=== PATIENT | female | born 1990 | race Caucasian/White ===

== ENCOUNTER 2016-06-15 18:52 | Outpatient (CLI) | payer OTHER | END 2016-06-15 21:30 | disposition home or self-care (01) | LOC: GENOP 18:52 | DX: O36.8120 Decreased fetal movements, second trimester, not applicable or unspecified (principal); Z3A.20 20 weeks gestation of pregnancy | CPT/HCPCS: 81001; 82731; G0463 ==

== ENCOUNTER 2016-07-05 14:00 | Outpatient (CLI) | payer OTHER | END 2016-07-05 16:32 | disposition home or self-care (01) | LOC: GENOP 14:00 | DX: O99.343 Other mental disorders complicating pregnancy, third trimester (principal); F41.0 Panic disorder [episodic paroxysmal anxiety]; F32.9 Major depressive disorder, single episode, unspecified; G43.909 Migraine, unspecified, not intractable, without status migrainosus; R11.2 Nausea with vomiting, unspecified; Z3A.35 35 weeks gestation of pregnancy | CPT/HCPCS: G0463 ==

== ENCOUNTER 2016-07-29 06:25 | Inpatient (IN) | payer OTHER ==
[~2016-07-29] VITALS: Ht 170.2 cm; Wt 96.2 kg
[2016-07-30 03:17] LABS: HEMOGLOBIN 9.8 gm/dl (12.3-15.3)
[2016-07-31] MEDS ORDERED: IBUPROFEN600 MG PO (12:27)
== END 2016-07-31 13:40 | disposition home or self-care (01) | DRG 765 ==
LOC: OB 06:25
PROVIDERS: ADMIT Obstetrics & Gynecology
PROC: 3E0R3CZ (ICD-10-PCS; 2016-07-29)
PROC: 3E0234Z Introduction of Serum, Toxoid and Vaccine into Muscle, Percutaneous Approach (ICD-10-PCS; 2016-07-29)
PROC: 10D00Z1 Extraction of Products of Conception, Low, Open Approach (ICD-10-PCS; principal; 2016-07-29 08:45)
DX: O34.211 Maternal care for low transverse scar from previous cesarean delivery (principal); O98.32 Other infections with a predominantly sexual mode of transmission complicating childbirth; N85.8 Other specified noninflammatory disorders of uterus; O99.824 Streptococcus B carrier state complicating childbirth; Z3A.39 39 weeks gestation of pregnancy; Z37.0 Single live birth; A60.04 Herpesviral vulvovaginitis; O26.893 Other specified pregnancy related conditions, third trimester; Z67.21 Type B blood, Rh negative; O92.013 Retracted nipple associated with pregnancy, third trimester; O09.293 Supervision of pregnancy with other poor reproductive or obstetric history, third trimester; O99.344 Other mental disorders complicating childbirth; F32.9 Major depressive disorder, single episode, unspecified; F41.9 Anxiety disorder, unspecified; O99.214 Obesity complicating childbirth; E66.9 Obesity, unspecified; Z68.33 Body mass index [BMI] 33.0-33.9, adult; Z87.891 Personal history of nicotine dependence; Z87.440 Personal history of urinary (tract) infections; Z23 Encounter for immunization; Z79.899 Other long term (current) drug therapy; Z88.2 Allergy status to sulfonamides; Z83.3 Family history of diabetes mellitus; Z82.49 Family history of ischemic heart disease and other diseases of the circulatory system; Z80.0 Family history of malignant neoplasm of digestive organs; Z83.49 Family history of other endocrine, nutritional and metabolic diseases
CPT/HCPCS: 36415; 81001; 82800; 85014; 85018; 85025; 85461; 86900; 86901; 90715; C9113; J0690; J0694; J1885; J2274; J2300; J2405; J2590; J2765; J3010; J7050; J7120; Q0162

== ENCOUNTER 2020-07-04 20:47 | Emergency (ER) | payer OTHER ==
[~2020-07-04 20:47] MED LIST: IBUPROFEN600 MG PO
== END 2020-07-04 23:53 | disposition left against medical advice (07) ==
LOC: ER1 20:47
DX: Z53.21 Procedure and treatment not carried out due to patient leaving prior to being seen by health care provider (principal)

== ENCOUNTER 2020-08-24 12:53 | Emergency (ER) | payer OTHER ==
[2020-08-24 14:08] LABS: HEMOGLOBIN 14.1 gm/dl (12.3-15.3); RED BLOOD COUNT 4.55 M/UL (4.00-5.10); WHITE BLOOD COUNT 7.7 K/UL (4.5-11.0)
[2020-08-24 14:27] LABS: BUN/CREATININE RATIO 16 (0-10)
[2020-08-24] MEDS ORDERED: ANTIVERT 12.512.5 MG PO (15:50)
[2020-08-24] MEDS ORDERED: ZOFRAN ODT 4 MG4 MG PO (15:50)
== END 2020-08-24 16:00 | disposition home or self-care (01) ==
LOC: ER1 12:53
PROVIDERS: Emergency Medicine; Physician Assistant Medical
DX: R42 Dizziness and giddiness (principal); R11.0 Nausea; R51.9 Headache, unspecified; Z90.710 Acquired absence of both cervix and uterus; Z88.2 Allergy status to sulfonamides; Z88.8 Allergy status to other drugs, medicaments and biological substances; F17.210 Nicotine dependence, cigarettes, uncomplicated
CPT/HCPCS: 70450; 80053; 80307; 81001; 82550; 82553; 83874; 84439; 84443; 84484; 85025; 93005; 96374; 96375; 99284; J1200; J1885; J2765; J7030

== ENCOUNTER 2021-09-27 16:21 | Emergency (ER) | payer OTHER ==
[~2021-09-27 16:21] MED LIST changes: +ANTIVERT 12.512.5 MG PO; +ZOFRAN ODT 4 MG4 MG PO
== END 2021-09-27 17:40 | disposition left against medical advice (07) ==
LOC: ER1 16:21
DX: Z53.21 Procedure and treatment not carried out due to patient leaving prior to being seen by health care provider (principal)

== ENCOUNTER → 2021-11-13 | Emergency (ER) | payer OTHER ==
[2021-11-13 22:03] LABS: HEMOGLOBIN 14.3 gm/dl (12.3-15.3); RED BLOOD COUNT 4.59 M/UL (4.00-5.10); WHITE BLOOD COUNT 11.6 K/UL (4.5-11.0)
[2021-11-13 22:32] LABS: BUN/CREATININE RATIO 20 (0-10)
== END | disposition left against medical advice (07) ==
LOC: ER1 19:52
PROVIDERS: Physician Assistant
DX: R07.9 Chest pain, unspecified (principal); R06.02 Shortness of breath; F17.200 Nicotine dependence, unspecified, uncomplicated; Z88.2 Allergy status to sulfonamides
CPT/HCPCS: 71045; 80053; 82550; 82553; 84484; 85025; 99283